=== PATIENT | female | born 1980 | race African-American/Black ===

== ENCOUNTER 2017-09-01 13:50 | Emergency (ER) | payer MEDICAID ==
[~2017-09-01] VITALS: Ht 167.6 cm; Wt 93.5 kg
[2017-09-01 20:58] LABS: BASOPHILS % 0.6 % (0.0-2.0); EOSINOPHILS % 2.5 % (0.0-5.0); HEMATOCRIT. 35.3 % (36.0-48.0); HEMOGLOBIN. 11.2 g/dL (12.0-16.0); MEAN CORPUSCULAR HEMOGLOBIN 25.4 pg (28.0-32.0); MEAN CORPUSCULAR VOLUME 79.9 fL (81.0-99.0); MEAN PLATELET VOLUME 7.9 fl (7.4-10.4); MONOCYTES % 10.1 % (2.0-8.0); NEUTROPHILS % 61.8 % (40.0-76.0); PLATELET 218 x1000/uL (130-400); RED BLOOD CELL COUNT 4.42 mill/uL (4.2-5.4); RED CELL DISTRIBUTION WIDTH 14.1 % (11.6-14.6)
[2017-09-01 21:04] LABS: CHLORIDE 107 mEq/L (98-107)
[2017-09-01 23:35] VITALS: BP 122/70
== END 2017-09-02 02:37 | disposition home or self-care (01) ==
LOC: ER 15:29
DX: R60.0 Localized edema (principal); I87.8 Other specified disorders of veins; M41.9 Scoliosis, unspecified; D64.9 Anemia, unspecified; Z98.890 Other specified postprocedural states
CPT/HCPCS: 29515; 36415; 80053; 85025; 93970; 99285